=== PATIENT | male | born 1995 | race Two or more races ===

== ENCOUNTER 2024-10-18 13:20 | Inpatient (IN) | payer MEDICAID, SELFPAY ==
[2024-10-18 13:22] VITALS: BMI 32.5
[2024-10-18 13:40] VITALS: BP 159/99; PULSE 63; RESP 18; TEMP 36.6; O2SAT 97
--- NOTE | 2024-10-18 13:48 | PD.EDMALE ---
ED Male Genitalurinary RME/HPI General Chief complaint: Urogenital-Male Stated complaint: BLOOD AND PROTIEN IN URINE Time Seen by Provider: 10/18/24 13:33 Source: patient Arrival date/time: 10/18/24 13:20 29-year-old male with no known medical history was sent to the emergency room by primary care provider for blood and protein in the urine. Mode of arrival: ambulatory Limitations: no limitations Related Data Previous Rx's ?Medication ?Instructions ?Recorded ibuprofen 800 mg tablet 800 mg PO TID PRN pain #30 tabs 03/25/23 loperamide 2 mg capsule (Imodium 2 mg PO Q6H PRN loose stool #14 03/25/23 A-D) caps ondansetron 4 mg disintegrating 4 mg PO Q6H PRN nausea and 03/25/23 tablet vomiting #14 tabs Allergies Allergy/AdvReac Type Severity Reaction Status Date / Time No Known Allergies Allergy Verified 10/18/24 13:21 ED Exam General Limitations: Present no limitations Course Orders Category Date Time Status CBC Stat Lab 10/18/24 13:48 Ordered CK [Creatine Kinase] Stat Lab 10/18/24 13:48 Ordered CMP [Comprehensive Metabolic Panel] Stat Lab 10/18/24 13:48 Ordered UA, C/S IF [Urinalysis, C/S if Indicated] Stat Lab 10/18/24 13:48 Ordered Vital Signs Vital signs: Vital Signs Temperature 97.9 F 10/18/24 13:40 Pulse Rate 63 10/18/24 13:40 Respiratory Rate 18 10/18/24 13:40 Blood Pressure 159/99 H 10/18/24 13:40 Pulse Oximetry (%) 97 10/18/24 13:40 Oxygen Delivery Method Room Air 10/18/24 13:40 Discharge Plan Prescriptions/Referrals Prescriptions/Med Rec: No Action loperamide [Imodium A-D] 2 mg capsule 2 mg PO Q6H PRN (Reason: loose stool) Qty: 14 0RF ibuprofen 800 mg tablet 800 mg PO TID PRN (Reason: pain) Qty: 30 0RF ondansetron 4 mg tablet,disintegrating 4 mg PO Q6H PRN (Reason: nausea and vomiting) Qty: 14 0RF Patient/Caregiver Discharge Instructions Print Language: German
[2024-10-18 14:02] LABS: Collection Type, Urine Clean Catch; Squamous Epithelial Cell,Urine 0 /hpf (0-5)
[2024-10-18 14:14] LABS: Bacteria,Urine Rare; Bilirubin,Urine Negative (Negative); Blood,Urine 3+ (Negative); Clarity,Urine Clear (Clear/Hazy); Culture Indicated,Urine Not Indicated; Glucose, Urine Negative (Negative); Ketones,Urine Negative (Negative); Leukocyte Esterase,Urine Negative (Negative); Nitrite,Urine Negative (Negative); PH,Urine 6.5 (5.0-7.0); Protein,Urine 2+ (Neg - Trace); RBC,Urine 5 /hpf (0-3); Specific Gravity,Urine 1.028 (1.001-1.035); Urobilinogen,Urine Negative mg/dL (0.0-1.0); WBC,Urine 5 /hpf (0-5)
[2024-10-18 14:32] LABS: Color,Urine Yellow (Lt Yel-Yel)
[2024-10-18 14:35] LABS: Basophils # (Auto) 0.0 Thou/mm3 (0.0-0.2); Basophils % (Auto) 0 % (0-2.5); Eosinophils # (Auto) 0.0 Thou/mm3 (0.0-0.5); Eosinophils % (Auto) 0 % (0-10); Hematocrit 45.8 % (41.0-53.0); Hemoglobin 15.4 g/dL (13.5-16.0); Immature Granulocytes Auto 0.01 Thou/mm3 (0.00-0.00); Lymphocytes # (Auto) 2.2 Thou/mm3 (1.0-4.8); Lymphocytes % (Auto) 24 % (10-50); Mean Corpuscular HGB Conc 33.6 g/dl (31.0-37.0); Mean Corpuscular Hemoglobin 28.3 pg (25.0-35.0); Mean Corpuscular Volume 84 fL (80-100); Monocytes # (Auto) 0.6 Thou/mm3 (0.0-0.8); Monocytes % (Auto) 7 % (0-12); Neutrophils # (Auto) 6.3 Thou/mm3 (1.8-7.7); Neutrophils % (Auto) 69 % (37-80); Nucleated Red Blood Cell # 0.00 Thou/mm3 (0.00-0.00); Nucleated Red Blood Cell % 0 /100 WBC (0); Platelet Count 320 Thou/mm3 (140-440); RDW Standard Deviation 39.5 fL (35.1-43.9); Red Blood Count 5.44 Miln/mm3 (4.50-5.90); White Blood Count 9.2 Thou/mm3 (3.8-10.6)
[2024-10-18 14:51] LABS: Alanine Aminotransferase 194 U/L (10-49); Albumin, Serum 4.4 gm/dL (3.5-5.0); Albumin/Globulin Ratio 1.9 (1.2-2.2); Alkaline Phosphatase 86 U/L (46-116); Anion Gap 9 (7-16); Aspartate Amino Transferase 704 U/L (0-34); BUN/Creatinine Ratio 7 Ratio (12-20); Bilirubin,Total 0.6 mg/dL (0.3-1.2); Blood Urea Nitrogen 6 mg/dL (9-23); Calcium 9.3 mg/dL (8.3-10.6); Calcium (Corrected) 9.3 mg/dL (8.5-10.1); Carbon Dioxide 26.7 mMol/L (20.0-31.0); Chloride 106 mMol/L (98-107); Creatinine (Component) 0.9 mg/dL (0.6-1.3); Estimated Creatinine Clearance 119.9 mL/min (>60); Globulin 2.3 gm/dL (2.3-3.5); Glucose 99 mg/dL (74-106); Osmolality,Calculated 280 (275-295); Potassium 5.1 mMol/L (3.4-5.1); Sodium 142 mMol/L (136-145); Total Protein 6.7 gm/dL (5.7-8.2); eGFR > 60 See Note
--- NOTE | 2024-10-18 15:00 | PD.EDRME ---
Rapid Medical Screening Exam RME Arrival date/time: 10/18/24 13:20 29-year-old male with no known medical history was sent to the emergency room by primary care provider for blood and protein in the urine. I have greeted and performed a focused initial assessment of this patient. A comprehensive ED assessment and evaluation of the patient, analysis of all test results, and completion of the medical decision making process will be conducted by additional ED providers. Chief Complaint: Urogenital-Male Time Seen by Provider: 10/18/24 13:33 Vital signs: Vital Signs Temperature 97.9 F 10/18/24 13:40 Pulse Rate 63 10/18/24 13:40 Respiratory Rate 18 10/18/24 13:40 Blood Pressure 159/99 H 10/18/24 13:40 Pulse Oximetry (%) 97 10/18/24 13:40 Oxygen Delivery Method Room Air 10/18/24 13:40 Vital signs reviewed by provider: Yes
[2024-10-18 15:05] LABS: Creatine Kinase > 39000 U/L (34-171)
--- NOTE | 2024-10-18 15:28 | XR_ITS ---
Examination: Retroperitoneal ultrasound, complete Technique: Multiple high resolution grayscale images of the retroperitoneum obtained, including kidneys and bladder. Exam date and time:October 18, 2024, 1532 hours INDICATIONS: Blood and protein in urine on laboratory examination today with urinary stream discoloration FINDINGS: Right kidney 10.5 cm cortex 1.4 cm Left kidney 9.8 cm cortex 1.9 cm No hydronephrosis or renal calculi Mild renal scar formation No bladder mass or bladder calculi Bladder prevoid volume 106 cc postvoid volume 0 cc Prostate 3.7 x 3.2 x 3.4 cm volume 21.0 cc no prostate nodules IMPRESSION: Mild bilateral renal parenchymal scar formation No hydronephrosis or renal calculi
--- NOTE | 2024-10-18 15:35 | XR_ITS ---
Examination: Abdomen sonogram, Limited Date and time of exam: October 18, 2024, 1543 hours INDICATIONS: Elevated liver function tests on laboratory examination today. Technique: Real-time hunt scale transabdominal sonographic images of the upper abdomen obtained. Findings: Normal gallbladder. Normal common bile duct 0.2 cm Pancreatic head 2.1 cm Liver 14.7 cm fatty infiltration no focal liver lesions Normal hepatopedal portal venous flow Patent IVC IMPRESSION: Normal gallbladder Normal common bile duct
--- NOTE | 2024-10-18 15:43 | PD.EDMALE ---
ED Male Genitalurinary RME/HPI General Chief complaint: Urogenital-Male Stated complaint: BLOOD AND PROTIEN IN URINE Time Seen by Provider: 10/18/24 13:33 Arrival date/time: 10/18/24 13:20 RME / HPI RME / HPI Narrative: 29-year-old male with no known medical history was sent to the emergency room by primary care provider for blood and protein in the urine. Apparently patient was having a heavy workout last Monday, and this morning woke up with soreness to the muscle all over and went to PCP because the urine was noted to be dark-colored. Patient was sent to us for further evaluation.. Denies any other complaints. Related Data Previous Rx's ?Medication ?Instructions ?Recorded ibuprofen 800 mg tablet 800 mg PO TID PRN pain #30 tabs 03/25/23 loperamide 2 mg capsule (Imodium 2 mg PO Q6H PRN loose stool #14 03/25/23 A-D) caps ondansetron 4 mg disintegrating 4 mg PO Q6H PRN nausea and 03/25/23 tablet vomiting #14 tabs Allergies Allergy/AdvReac Type Severity Reaction Status Date / Time No Known Allergies Allergy Verified 10/18/24 13:21 Review of Systems Review of Systems Narrative Review of Systems: Review of system reviewed and within normal limits except mentioned in HPI ED Exam Narrative Physical exam: VITAL SIGNS: Reviewed. GENERAL APPEARANCE: Alert and interactive, follows commands, no acute distress, HEAD AND FACE: Non-traumatic. ENT: PERRL, pink conjunctivitis, eyelid no trauma, Mucous membrane moist. NECK: Supple, nontender, no nuchal rigidity. CHEST: No tenderness, no crepitus, no paradoxical movement, no retractions. LUNGS: Clear, well ventilated, symmetric, no rales, no wheezing, no ronchi, no stridor, good breath sounds bilaterally. HEART: Regular rate, regular rhythm, no murmur, no gallops. ABDOMEN: Soft, positive bowel sounds, nondistended, no guarding, nontender, no rebound, no masses, RECTAL: Deferred. GENITAL: Deferred. NEUROLOGICAL: Gross motor function intact sensory function intact, Appropriate for age. MUSCULOSKELETAL: low back nontender, full range of motion. EXTREMITIES: Nontender, full range of motion. SKIN: Color pink, dry, no rash, no lacerations, no abrasions, no contusions. LYMPHATICS: Deferred. Course Quality Measures none Orders Category Date Time Status COVID-19 Screening Questionnaire NOW Care 10/18/24 15:56 Active Decision to Admit X1 Care 10/18/24 15:56 Active US gall bladder Stat Exams 10/18/24 15:35 Completed US renal BI Stat Exams 10/18/24 15:28 Completed Alcohol, Blood Medical Stat Lab 10/18/24 14:12 Completed CBC Stat Lab 10/18/24 14:12 Completed CK [Creatine Kinase] Stat Lab 10/18/24 14:12 Completed CMP [Comprehensive Metabolic Panel] Stat Lab 10/18/24 14:12 Completed Drug Screen,Urine Stat Lab 10/18/24 13:50 Received Lactic Acid [Lactate (Lactic Acid)] Stat Lab 10/18/24 16:28 Completed Mag [Magnesium] Stat Lab 10/18/24 16:28 Received Phosphorous Stat Lab 10/18/24 16:28 Received UA, C/S IF [Urinalysis, C/S if Indicated] Stat Lab 10/18/24 13:50 Completed Uric Acid Stat Lab 10/18/24 14:12 Completed VBG [Venous Blood Gas] Stat Lab 10/18/24 16:28 Completed Dextrose 5%-Water [D5w] 500 ml Med 10/18/24 16:00 Active Sodium Bicarb 8.4% 50ml Vial* 88.23 meq IV 100 mls/hr Dextrose 5%-Water [D5w] 500 ml Med 10/19/24 09:39 Discontinued Sodium Bicarb 8.4% 50ml Vial* 88.23 meq IV 100 mls/hr Ringers Lactated 1000 ml [Lactated Ringers] 1,000 ml Med 10/18/24 15:52 Discontinued IV 999 mls/hr Ringers Lactated 1000 ml [Lactated Ringers] 1,000 ml Med 10/18/24 15:52 Discontinued IV 999 mls/hr Sodium Chloride 0.9% 1000 ml [Ns] 1,000 ml Med 10/18/24 15:45 Discontinued IV 999 mls/hr Sodium Chloride 0.9% 1000 ml [Ns] 1,000 ml Med 10/18/24 15:45 Discontinued IV 999 mls/hr Vital Signs Vital signs: Vital Signs Temperature 97.9 F 10/18/24 13:40 Pulse Rate 63 10/18/24 13:40 Respiratory Rate 18 10/18/24 13:40 Blood Pressure 159/99 H 10/18/24 13:40 Pulse Oximetry (%) 97 10/18/24 13:40 Oxygen Delivery Method Room Air 10/18/24 13:40 Urogenital - Male [facility] Narrative MDM Narrative:: 29-year-old male with no known medical history was sent to the emergency room by primary care provider for blood and protein in the urine. Apparently patient was having a heavy workout last Monday, and this morning woke up with soreness to the muscle all over and went to PCP because the urine was noted to be dark-colored. Patient was sent to us for further evaluation.. Denies any other complaints. Patient's serum creatinine kinase was noted to be more than 39,000. The rest of the labs unremarkable except for AST of 704 ALT of 194. Creatinine is normal. Ultrasound of the renal came back unremarkable except ultrasound of the gallbladder also came back normal. Discussed result with the family and patient. Patient was started on 2 L IV LR and started on bicarbonate drip. Patient data External records reviewed:: None Clinical information provided by:: patient and family Social determinants that could affect healthcare access:: none Patient has the following chronic illnesses:: None How is presenting disease/condition affected by chronic disease/condition?: no chronic disease Evaluation data The following diagnostics were reviewed and interpreted by me:: lab results, radiology exam(s) and EKG tracing(s) Lab and/or radiology exams considered but not ordered:: None Interpretation Summary: See results [facility] Medications / Prescriptions Medications or Prescriptions considered but not ordered:: None Medication administrations:: Medication Administration History Sodium Bicarbonate 88.23 meq/ (Dextrose) 588.23 mls @ 100 mls/hr IV .Q5H53M [facility] Stop: 10/19/24 03:45 Last Admin: 10/18/24 16:38 Dose: 100 mls/hr Documented By: KAUSHIK Lactated Ringer's (Lactated Ringers) 1,000 mls @ 150 mls/hr IV .Q6H40M [facility] Stop: 11/17/24 16:14 Ibuprofen (Ibuprofen Tab 600 Mg Tablet) 600 mg PO Q6H PRN PRN Reason: Pain 1-3 and/or Fever >100.1 Stop: 11/17/24 16:10 Ondansetron HCl (Ondansetron Inj 2 Mg/Ml Inj 2 Ml) 4 mg IVP Q6H PRN; Protocol PRN Reason: NAUSEA OR VOMITING Stop: 11/17/24 16:10 Discontinued Medications Sodium Chloride (Ns) 1,000 mls @ 999 mls/hr IV .Q1H1M [facility] Stop: 10/18/24 16:45 Sodium Chloride (Ns) 1,000 mls @ 999 mls/hr IV .Q1H1M [facility] Stop: 10/18/24 16:45 Lactated Ringer's (Lactated Ringers) 1,000 mls @ 999 mls/hr IV .Q1H1M [facility] Stop: 10/18/24 16:52 Last Admin: 10/18/24 16:38 Dose: 999 mls/hr Documented By: KAUHSIK Lactated Ringer's (Lactated Ringers) 1,000 mls @ 999 mls/hr IV .Q1H1M [facility] Stop: 10/18/24 16:52 Last Admin: 10/18/24 16:39 Dose: 999 mls/hr Documented By: KAUSHIK Sodium Bicarbonate 88.23 meq/ (Dextrose) 588.23 mls @ 100 mls/hr IV .Q5H53M [facility] Stop: 11/18/24 09:38 Sodium Bicarbonate (Sodium Bicarb 8.4% 50ml Vial*) Confirm Administered Dose 100 mls @ ud .ROUTE .STK-MED ONE Stop: 10/18/24 16:34 IV fluids, and sodium bicarbonate drip Consultations Consultation(s) initiated? (list below): No Diagnosis Urogenital Male Differential Diagnosis: other (Rhabdomyolysis, nephrotic syndrome, UTI) Most likely diagnosis given after review of the tests above:: Rhabdomyolysis Admission Indicated Admission indicated?: indicated Admission Request Was there a request for admission?: Yes Admission Attestation Admission request attestation: Discussed case with [] from Hospitalist service regarding admission. Discussed patients ED course, exam findings, labs, and radiology results. The Hospitalist [agrees,declines] to accept the patient for admission. Disposition Plan Disposition Plan: Admit Discharge Plan Problem List Clinical Impression: Rhabdomyolysis
[2024-10-18 16:04] VITALS: BP 164/95; PULSE 78; RESP 18; TEMP 36.8; O2SAT 98
[2024-10-18 16:10] LABS: Uric Acid 5.4 mg/dL (3.7-9.2)
--- NOTE | 2024-10-18 16:17 | PD.RESHP ---
Documentation for date of: 10/18/24 HPI History of Present Illness Chief complaint: Muscle soreness History of present illness: 29-year-old male with past medical history of marijuana use presenting to the ED on 10/18 with episode of muscle soreness. Patient states that yesterday he was doing a new core workout at which point he felt muscle soreness but no other concerning symptoms. Patient denies having any accidents or trauma and states that he just went harder than usual. Patient denies having any associated fever/chills, abdominal pain but noticed that his urine became dark-colored shortly after his workout. When the urine did not clear up he decided to present himself to the emergency room. Patient denies taking any supplements or exogenous testosterone, PED's. Patient denies having any concerning cardiac symptoms such as chest pain, shortness of breath, nausea/vomiting or diarrhea. Medical history: As stated above Surgical history: Denies Allergies: NKDA Home medications: Denies any prescription medication, supplement use or energy drinks/preworkout Family history: Noncontributory Social history: Patient lives in [place], works as a network security analyst, patient's 's family is in [facility] more, patient smokes marijuana every other day denies heavy alcohol use or any other illicit drugs and denies tobacco use. ROS: All 12 systems assessed and the patient denies unless otherwise stated in HPI In the ED, patient presented mildly hypertensive 159/99, regular heart rate, respiratory rate and afebrile satting 97 on room air. Pertinent lab findings included potassium 5.1, BUN 6, creatinine 0.9, eGFR greater than 60, lactic acid 1.0, AST 704, ALT 194, T. bili 0.6, total creatinine kinase greater than 39,000. Urinalysis shows proteinuria, hematuria 3+ with 5 RBC. Renal ultrasound shows bilateral renal parenchymal scar formation but no hydronephrosis and gallbladder ultrasounds was negative. Patiently will be admitted for the management of rhabdomyolysis we treated with IV fluids and close monitoring. Exam Vital Signs Temp Pulse Resp BP Pulse Ox O2 Del Method 98.3 F 78 18 164/95 H 98 Room Air 10/18/24 16:04 10/18/24 16:04 10/18/24 16:04 10/18/24 16:04 10/18/24 16:10/18/24 16:04 Narrative Exam Physical Exam: GENERAL: Awake, answering questions appropriately, appears stated age HEENT: NC/AT. Moist mucosa. PERRLA/EOMI. CARDIO: Heart RRR, no obvious murmurs, no JVD. PULM: No coughing or visible SOB. Lungs CTA B/L. GI: Abdomen soft, NT/ND, +BS. SKIN/MSK/EXT: No wounds/discoloration/rashes/edema/amputations noted. +Pedal pulses present B/L. NEURO: Oriented x3, Moves extremities x4, no focal neurologic deficits noted Results: Labs 10/19/24 04:30 10/19/24 04:30 Labs: Short CBC 10/18/24 Range/Units 14:12 WBC 9.2 (3.8-10.6) Thou/mm3 Hgb 15.4 (13.5-16.0) g/dL Hct 45.8 (41.0-53.0) % Plt Count 320 (140-440) Thou/mm3 BMP 10/18/24 14:12 Sodium 142 Potassium 5.1 Chloride 106 Carbon Dioxide 26.7 BUN 6 L Creatinine 0.9 Glucose 99 Calcium 9.3 Cardiac Enzymes 10/18/24 Range/Units 14:12 Total Creatine Kinase > 65422 H (34-171) U/L Liver Function 10/18/24 Range/Units 14:12 Total Bilirubin 0.6 (0.3-1.2) mg/dL AST 704 H* (0-34) U/L ALT 194 H (10-49) U/L Alkaline Phosphatase 86 (46-116) U/L Albumin 4.4 (3.5-5.0) gm/dL Urine 10/18/24 Range/Units 13:50 Urine Color Yellow (Lt Yel-Yel) Urine Clarity Clear (Clear/Hazy) Urine pH 6.5 (5.0-7.0) Ur Specific [place] 1.028 (1.001-1.035) Urine Protein 2+ A (Neg - Trace) Urine Glucose (UA) Negative (Negative) Quality Measures Quality Measures VTE prophylaxis Medications Home Medications and Allergies Home Medications ?Medication ?Instructions ?Recorded ?Confirmed ?Type No Known Home Medications 10/18/24 10/18/24 History Allergies Allergy/AdvReac Type Severity Reaction Status Date / Time No Known Allergies Allergy Verified 10/18/24 13:21 Visit Medications Lactated Ringer's (Lactated Ringers) 1,000 mls @ 999 mls/hr IV .Q1H1M ONE Stop: 10/18/24 16:52 Lactated Ringer's (Lactated Ringers) 1,000 mls @ 999 mls/hr IV .Q1H1M [facility] Stop: 10/18/24 16:52 Sodium Bicarbonate 88.23 meq/ (Dextrose) 588.23 mls @ 100 mls/hr IV .Q5H53M [facility] Stop: 11/18/24 09:38 Sodium Bicarbonate 88.23 meq/ (Dextrose) 588.23 mls @ 100 mls/hr IV .Q5H53M [facility] Stop: 10/19/24 09:38 Lactated Ringer's (Lactated Ringers) 1,000 mls @ 150 mls/hr IV .Q6H40M [facility] Stop: 11/17/24 16:14 Ibuprofen (Ibuprofen Tab 600 Mg Tablet) 600 mg PO Q6H PRN PRN Reason: Pain 1-3 and/or Fever >100.1 Stop: 11/17/24 16:10 Ondansetron HCl (Ondansetron Inj 2 Mg/Ml Inj 2 Ml) 4 mg IVP Q6H PRN; Protocol PRN Reason: NAUSEA OR VOMITING Stop: 11/17/24 16:10 Discontinued Medications Sodium Chloride (Ns) 1,000 mls @ 999 mls/hr IV .Q1H1M ONE Stop: 10/18/24 16:45 Sodium Chloride (Ns) 1,000 mls @ 999 mls/hr IV .Q1H1M ONE Stop: 10/18/24 16:45 Assessment & Plan Plan 29-year-old male with past medical history of marijuana use presenting to the ED on 10/18 with episode of muscle soreness will be admitted for the management of rhabdomyolysis we treated with IV fluids and close monitoring. #Rhabdomyolysis #Hematuria As noted above in HPI, patient had excessive workout which caused rhabdomyolysis, denies any trauma or crush injury or illicit drug use In the ED, patient found to have a CK greater than 39,000 with hematuria and proteinuria noted on UA On examination, no pertinent findings Ultrasound of kidneys shows bilateral cortical thinning without any hydronephrosis In the ED, patient given 2 L of LR along with sodium bicarb drip Plan: Will continue IV bicarb drip for 1 bag then discontinue Will continue IV LR 150 cc an hour continuously Monitor with morning labs #Elevated liver enzymes During assessment, patient has elevated LFTs without elevation in T. 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 #Hypertensive On presentation, patient is hypertensive systolic in the 150s and diastolic in the 90s Likely secondary to acutely ill status and rhabdomyolysis Patient does not take any antihypertensives at home Plan: Will continue monitoring blood pressure #Marijuana use disorder Patient smokes marijuana every other day Plan: Counseled on consideration to lessen the use Health Maintenance: Lines: PIV Diet: Regular Bowel: Not needed GI prophylaxis: Not needed DVT prophylaxis: Not needed patient ambulating without any issues Dispo: IV fluid resuscitation for rhabdomyolysis Code: Full Patient seen and assessed with attending Dr. Ron Cummins DO PGY-2 Internal Medicine - [facility] Attending Provider Attestation/Addendum I attest that I was physically present for the evaluation, physical examination, lab and imaging review of the patient with the residents. I discussed the case with the residents and agree with the findings and plans of care as documented above. After examination of the patient and review of the clinical data I feel that this patient needs admission to the hospital for further treatment/evaluation. Arpita Velasquez MD
[2024-10-18 16:21] VITALS: BP 157/103; PULSE 66; RESP 17; TEMP 36.9; O2SAT 99
[2024-10-18 16:27] LABS: Alcohol, Blood Medical < 3.0 mg/dL (0-10.0)
[2024-10-18 16:32] LABS: Base Excess, Venous 2 (-3-3); Lactate (Lactic Acid) 1.0 mMol/L (0.4-2.0); O2 Saturation, Venous 41 % (96-97); PCO2, Venous 48 mmHg (36-56); PO2, Venous 23 mmHg (15-58); pH, Venous 7.38 (7.33-7.66)
[2024-10-18] MEDS: RINGERS LACTATED 1000 ML 1,000 ML 999 ML IV ×2 (16:38→16:39)
[2024-10-18] MEDS: Sodium Bicarb 8.4% 50ml Vial* 88.23 MEQ in DEXTROSE 5%-WATER 500 ML 100 MEQ IV (16:38)
[2024-10-18 16:58] LABS: Magnesium 1.9 mg/dL (1.6-2.6); Phosphorous 3.6 mg/dL (2.4-5.1)
[2024-10-18 17:08] LABS: Amphetamine/Methamp Scrn,U Negative (Negative); Barbiturate Screen,Urine Negative (Negative); Benzodiazepines Screen,Urine Negative (Negative); Benzoylecgonine Screen, Ur Negative (Negative); Fentanyl Screen,Urine Negative (Negative); Opiate Screen,Urine Negative (Negative); THC Screen,Urine Positive (Negative)
[2024-10-18 17:43] LABS: Hepatitis A Antibody IgM Non Reactive (Non React); Hepatitis B Core Antibody IgM Non Reactive (Non React); Hepatitis B Surface Antigen Non Reactive (Non React); Hepatitis C Antibody Non Reactive (Non React)
[2024-10-18 18:04] VITALS: BP 147/103; PULSE 68; RESP 18; TEMP 36.6; O2SAT 99
[2024-10-18 20:00] VITALS: BP 147/95; PULSE 81; RESP 15; O2SAT 99
[2024-10-18 20:06] LABS: Base Excess, Venous 7 (-3-3); O2 Saturation, Venous 56 % (96-97); PCO2, Venous 46 mmHg (36-56); PO2, Venous 26 mmHg (15-58); pH, Venous 7.46 (7.33-7.66)
[2024-10-18 20:22] LABS: Alanine Aminotransferase 216 U/L (10-49); Albumin, Serum 4.4 gm/dL (3.5-5.0); Albumin/Globulin Ratio 2.2 (1.2-2.2); Alkaline Phosphatase 83 U/L (46-116); Anion Gap 6 (7-16); Aspartate Amino Transferase 776 U/L (0-34); BUN/Creatinine Ratio 7 Ratio (12-20); Bilirubin,Total 0.6 mg/dL (0.3-1.2); Blood Urea Nitrogen 6 mg/dL (9-23); Calcium 9.5 mg/dL (8.3-10.6); Calcium (Corrected) 9.5 mg/dL (8.5-10.1); Carbon Dioxide 32.5 mMol/L (20.0-31.0); Chloride 105 mMol/L (98-107); Creatinine (Component) 0.9 mg/dL (0.6-1.3); Estimated Creatinine Clearance 119.9 mL/min (>60); Globulin 2.0 gm/dL (2.3-3.5); Glucose 126 mg/dL (74-106); Osmolality,Calculated 284 (275-295); Potassium 4.8 mMol/L (3.4-5.1); Sodium 143 mMol/L (136-145); Total Protein 6.4 gm/dL (5.7-8.2); eGFR > 60 See Note
[2024-10-18 20:25] VITALS: BMI 32.9
[2024-10-18] MEDS: RINGERS LACTATED 1000 ML 1,000 ML 150 ML IV (20:27)
[2024-10-18 21:09] VITALS: BP 154/98; PULSE 74; RESP 18; TEMP 36.6; O2SAT 99
[2024-10-19] VITALS (7 sets, daily range): BP systolic 138–151; BP diastolic 85–96; PULSE 60–80; RESP 17–19; TEMP 36.3–36.6; O2SAT 96–99
[2024-10-19] MEDS: RINGERS LACTATED 1000 ML 1,000 ML 150 ML IV (03:13)
[2024-10-19 05:04] LABS: Basophils # (Auto) 0.1 Thou/mm3 (0.0-0.2); Basophils % (Auto) 1 % (0-2.5); Eosinophils # (Auto) 0.1 Thou/mm3 (0.0-0.5); Eosinophils % (Auto) 1 % (0-10); Hematocrit 43.9 % (41.0-53.0); Hemoglobin 14.7 g/dL (13.5-16.0); Immature Granulocytes Auto 0.01 Thou/mm3 (0.00-0.00); Lymphocytes # (Auto) 3.2 Thou/mm3 (1.0-4.8); Lymphocytes % (Auto) 32 % (10-50); Mean Corpuscular HGB Conc 33.5 g/dl (31.0-37.0); Mean Corpuscular Hemoglobin 28.1 pg (25.0-35.0); Mean Corpuscular Volume 84 fL (80-100); Monocytes # (Auto) 0.6 Thou/mm3 (0.0-0.8); Monocytes % (Auto) 6 % (0-12); Neutrophils # (Auto) 5.9 Thou/mm3 (1.8-7.7); Neutrophils % (Auto) 59 % (37-80); Nucleated Red Blood Cell # 0.00 Thou/mm3 (0.00-0.00); Nucleated Red Blood Cell % 0 /100 WBC (0); Platelet Count 318 Thou/mm3 (140-440); RDW Standard Deviation 39.3 fL (35.1-43.9); Red Blood Count 5.23 Miln/mm3 (4.50-5.90); White Blood Count 9.9 Thou/mm3 (3.8-10.6)
[2024-10-19 05:32] LABS: Alanine Aminotransferase 218 U/L (10-49); Albumin, Serum 3.8 gm/dL (3.5-5.0); Albumin/Globulin Ratio 1.8 (1.2-2.2); Alkaline Phosphatase 77 U/L (46-116); Anion Gap 9 (7-16); Aspartate Amino Transferase 729 U/L (0-34); BUN/Creatinine Ratio 6 Ratio (12-20); Bilirubin,Total 0.7 mg/dL (0.3-1.2); Blood Urea Nitrogen < 5 mg/dL (9-23); Calcium 8.9 mg/dL (8.3-10.6); Calcium (Corrected) 9.1 mg/dL (8.5-10.1); Carbon Dioxide 29.3 mMol/L (20.0-31.0); Chloride 106 mMol/L (98-107); Creatinine (Component) 0.8 mg/dL (0.6-1.3); Estimated Creatinine Clearance 135.6 mL/min (>60); Globulin 2.1 gm/dL (2.3-3.5); Glucose 101 mg/dL (74-106); Osmolality,Calculated 284 (275-295); Potassium 3.8 mMol/L (3.4-5.1); Sodium 144 mMol/L (136-145); Total Protein 5.9 gm/dL (5.7-8.2); eGFR > 60 See Note
[2024-10-19] MEDS: RINGERS LACTATED 1000 ML 1,000 ML 200 ML IV (08:36)
[2024-10-19 09:28] LABS: Creatine Kinase > 39000 U/L (34-171)
--- NOTE | 2024-10-19 11:05 | PC.SS ---
29YO Male, reason for visit: Rhabdomyolysis. ?? SS met with patient at bedside, role, and purpose of today?s contact was explained. Verbal consent was provided by patient to allow his spouse, Ann Robles to provide information. Ann confirmed patient?s demographic information. Patient?s primary medical surrogate decisionmaker is his spouse, Ann Roblse, . Patient is independent with ADL completion and ambulation. [facility]: [facility] PCP: TAHIRA, last appt. was 10/17/24. Discharge plan discussed with patient, he is requesting to return home at the time of discharge. ? Next of kin: Spouse, Ann Robles [phone] Discharge plan: Home, family to transport.
[2024-10-19] MEDS: RINGERS LACTATED 1000 ML 1,000 ML 300 ML IV ×4 (11:31→21:35)
--- NOTE | 2024-10-19 15:48 | ESPR_ITS ---
Documentation for date of: 10/19/24 Subjective Subjective Interval history: Patient is seen and examined at bedside in the ICU. No acute overnight events. Reported that his urine is clear and does not have any other complaints. Labs done this morning still showed creatinine kinase greater than 39,000 and AST 729, ALT 218. Increased IV fluids to 300 mL/h. Will continue to monitor creatinine kinase and recommended to increase her fluid intake. Exam Vital Signs Temp Pulse Resp BP Pulse Ox O2 Del Method 97.4 F 70 18 151/87 H 99 Room Air 10/19/24 12:00 10/19/24 12:00 10/19/24 12:00 10/19/24 12:00 10/19/24 12:00 10/19/24 12:00 Narrative Exam General: Awake. HEENT: Normocephalic, atraumatic, mucous membranes moist. Heart: Regular rate and rhythm, no murmurs. Lungs: Clear to auscultation with no wheezing or crackles. Abdomen: Soft, nondistended, nontender, positive bowel sounds. ?No guarding or rebound tenderness. Neurologic: Alert and oriented x3, no gross neurological deficit, and patient able to move all 4 extremities. Extremities: No edema. Skin: No rash or ecchymoses. Objective Labs 10/19/24 04:30 10/19/24 04:30 Labs: Laboratory Results - last 24 hr 10/18/24 10/18/24 10/18/24 13:50 14:12 14:17 WBC RBC Hgb Hct MCV MCH MCHC RDW Std Deviation Plt Count Neut % (Auto) Lymph % (Auto) [place] % (Auto) Eos % (Auto) Baso % (Auto) Neut # (Auto) Lymph # (Auto) [place] # (Auto) Eos # (Auto) Baso # (Auto) Immature Gran # (Auto) Absolute Nucleated RBC Immature Gran % Nucleated RBC % VBG pH VBG pCO2 VBG pO2 VBG O2 Sat (Siobhan) VBG Base Excess Sodium Potassium Chloride Carbon Dioxide Anion Gap BUN Creatinine Estim Creat Clear Calc eGFR BUN/Creatinine Ratio Glucose Calculated Osmolality Lactic Acid Uric Acid 5.4 Calcium Corrected Calcium Phosphorus Magnesium Total Bilirubin AST ALT Alkaline Phosphatase Total Creatine Kinase Total Protein Albumin Globulin Albumin/Globulin Ratio Urine Opiates Screen Negative Urine Fentanyl Screen Negative Ur Barbiturates Screen Negative U Amphetamin/Meth Scrn Negative U Benzodiazepines Scrn Negative U Cocaine Metab Screen Negative U Marijuana (THC) Screen Positive A Ethyl Alcohol < 3.0 Hepatitis A IgM Ab Non Reactive Hep Bs Antigen Non Reactive Hep B Core IgM Ab Non Reactive Hepatitis C Antibody Non Reactive 10/18/24 10/18/24 10/19/24 16:28 19:59 04:30 WBC 9.9 RBC 5.23 Hgb 14.7 Hct 43.9 MCV 84 MCH 28.1 MCHC 33.5 RDW Std Deviation 39.3 Plt Count 318 Neut % (Auto) 59 Lymph % (Auto) 32 [place] % (Auto) 6 Eos % (Auto) 1 Baso % (Auto) 1 Neut # (Auto) 5.9 Lymph # (Auto) 3.2 [place] # (Auto) 0.6 Eos # (Auto) 0.1 Baso # (Auto) 0.1 Immature Gran # (Auto) 0.01 H Absolute Nucleated RBC 0.00 Immature Gran % 0 Nucleated RBC % 0 VBG pH 7.38 7.46 VBG pCO2 48 46 VBG pO2 23 26 VBG O2 Sat (Siobhan) 41 L 56 L D VBG Base Excess 2 7 H Sodium 143 144 Potassium 4.8 3.8 D Chloride 105 106 Carbon Dioxide 32.5 H 29.3 Anion Gap 6 L 9 BUN 6 L < 5 L Creatinine 0.9 0.8 Estim Creat Clear Calc 119.9 135.6 eGFR > 60 > 60 BUN/Creatinine Ratio 7 L 6 L Glucose 126 H 101 Calculated Osmolality 284 284 Lactic Acid 1.0 Uric Acid Calcium 9.5 8.9 Corrected Calcium 9.5 9.1 Phosphorus 3.6 Magnesium 1.9 Total Bilirubin 0.6 0.7 AST 776 H* 729 H* ALT 216 H 218 H Alkaline Phosphatase 83 77 Total Creatine Kinase > 18284 H Total Protein 6.4 5.9 Albumin 4.4 3.8 D Globulin 2.0 L 2.1 L Albumin/Globulin Ratio 2.2 1.8 Urine Opiates Screen Urine Fentanyl Screen Ur Barbiturates Screen U Amphetamin/Meth Scrn U Benzodiazepines Scrn U Cocaine Metab Screen U Marijuana (THC) Screen Ethyl Alcohol Hepatitis A IgM Ab Hep Bs Antigen Hep B Core IgM Ab Hepatitis C Antibody ABG Interpretation ABG results: 10/18/24 10/18/24 16:28 19:59 VBG pH 7.38 7.46 VBG pCO2 48 46 VBG pO2 23 26 VBG Base Excess 2 7 H Quality Measures Quality Measures none Assessment & Plan Assessment Current Active Medications: Generic Name Dose Route Start Last Admin Trade Name Freq PRN Reason Stop Dose Admin Lactated Ringer's 1,000 mls @ 300 mls/hr 10/19/24 11:20 10/19/24 14:51 Lactated Ringers IV 11/18/24 11:19 300 mls/hr .Q3H20M BORIS Administration Ibuprofen 600 mg 10/18/24 16:11 Ibuprofen Tab 600 Mg Tablet PO 11/17/24 16:10 Q6H PRN Pain 1-3 and/or Fever >100.1 Ondansetron HCl 4 mg 10/18/24 16:11 Ondansetron Inj 2 Mg/Ml Inj 2 Ml IVP 11/17/24 16:10 Q6H PRN NAUSEA OR VOMITING Protocol Plan 29-year-old male with past medical history of marijuana use presenting to the ED on 10/18 with episode of muscle soreness will be admitted for the management of rhabdomyolysis we treated with IV fluids and close monitoring. #Rhabdomyolysis #Hematuria As noted above in HPI, patient had excessive workout which caused rhabdomyolysis, denies any trauma or crush injury or illicit drug use In the ED, patient found to have a CK greater than 39,000 with hematuria and proteinuria noted on UA On examination, no pertinent findings Ultrasound of kidneys shows bilateral cortical thinning without any hydronephrosis In the ED, patient given 2 L of LR along with sodium bicarb drip Plan: Will continue IV LR 300 cc an hour continuously Monitor with morning labs #Elevated liver enzymes, resolving During assessment, patient has elevated LFTs without elevation in T. bili On examination, patient denies having any significant abdominal tenderness Patient has not had a drink of alcohol for over a year and when he used to drink was a social drinker Likely secondary to rhabdomyolysis Plan: Follow-up on hepatitis panel - negative Monitor LFTs #Hypertension On presentation, patient is hypertensive systolic in the 150s and diastolic in the 90s Likely secondary to acutely ill status and rhabdomyolysis Patient does not take any antihypertensives at home Plan: Will continue monitoring blood pressure Started on losartan 25mg once daily, will increase as needed #Marijuana use disorder Patient smokes marijuana every other day Plan: Counseled on consideration to lessen the use Health Maintenance: Lines: PIV Diet: Regular Bowel: Not needed GI prophylaxis: Not needed DVT prophylaxis: Not needed patient ambulating without any issues Dispo: IV fluid resuscitation for rhabdomyolysis Code: Full Patient plan of care was discussed with the attending physician, Dr. Ron Jessica, PGY2 Attending Provider Attestation/Addendum I attest that I was physically present for the evaluation, physical examination, lab and imaging review of the patient with the residents. I discussed the case with the residents and agree with the findings and plans of care as documented above. At bedside today, patient appears comfortable and denies any new complaints. Denies muscle sores, nausea or vomiting. States that her urine is more clear compared to yesterday. Follow-up CK level is still more than 39,000, LFTs also remain high. We will increase the rate of IV hydration to 300 cc/h. Arpita Velasquez MD
[2024-10-19] MEDS: LOSARTAN POTASSIUM 25 MG TABLET PO (17:02)
[2024-10-19 17:16] LABS: Thyroid Stimulating Hormone 1.45 uIU/mL (0.55-4.78)
[2024-10-20] VITALS (8 sets, daily range): BP systolic 125–158; BP diastolic 68–96; PULSE 61–85; RESP 16–18; TEMP 36.2–36.7; O2SAT 96–98
[2024-10-20] MEDS: RINGERS LACTATED 1000 ML 1,000 ML 300 ML IV ×7 (01:50→23:49)
[2024-10-20] MEDS: IBUPROFEN TAB 600 MG TABLET PO (02:19)
[2024-10-20 05:10] LABS: Basophils # (Auto) 0.1 Thou/mm3 (0.0-0.2); Basophils % (Auto) 1 % (0-2.5); Eosinophils # (Auto) 0.2 Thou/mm3 (0.0-0.5); Eosinophils % (Auto) 2 % (0-10); Hematocrit 43.6 % (41.0-53.0); Hemoglobin 14.9 g/dL (13.5-16.0); Immature Granulocytes Auto 0.02 Thou/mm3 (0.00-0.00); Lymphocytes # (Auto) 3.8 Thou/mm3 (1.0-4.8); Lymphocytes % (Auto) 38 % (10-50); Mean Corpuscular HGB Conc 34.2 g/dl (31.0-37.0); Mean Corpuscular Hemoglobin 29.0 pg (25.0-35.0); Mean Corpuscular Volume 85 fL (80-100); Monocytes # (Auto) 0.7 Thou/mm3 (0.0-0.8); Monocytes % (Auto) 7 % (0-12); Neutrophils # (Auto) 5.3 Thou/mm3 (1.8-7.7); Neutrophils % (Auto) 53 % (37-80); Nucleated Red Blood Cell # 0.00 Thou/mm3 (0.00-0.00); Nucleated Red Blood Cell % 0 /100 WBC (0); Platelet Count 236 Thou/mm3 (140-440); RDW Standard Deviation 39.4 fL (35.1-43.9); Red Blood Count 5.14 Miln/mm3 (4.50-5.90); White Blood Count 10.1 Thou/mm3 (3.8-10.6)
[2024-10-20 05:39] LABS: Alanine Aminotransferase 265 U/L (10-49); Albumin, Serum 4.0 gm/dL (3.5-5.0); Albumin/Globulin Ratio 1.9 (1.2-2.2); Alkaline Phosphatase 78 U/L (46-116); Anion Gap 8 (7-16); Aspartate Amino Transferase 765 U/L (0-34); BUN/Creatinine Ratio 6 Ratio (12-20); Bilirubin,Total 0.6 mg/dL (0.3-1.2); Blood Urea Nitrogen < 5 mg/dL (9-23); Calcium 9.4 mg/dL (8.3-10.6); Calcium (Corrected) 9.4 mg/dL (8.5-10.1); Carbon Dioxide 28.3 mMol/L (20.0-31.0); Chloride 106 mMol/L (98-107); Creatinine (Component) 0.9 mg/dL (0.6-1.3); Estimated Creatinine Clearance 130.8 mL/min (>60); Globulin 2.1 gm/dL (2.3-3.5); Glucose 97 mg/dL (74-106); Osmolality,Calculated 280 (275-295); Potassium 4.1 mMol/L (3.4-5.1); Sodium 142 mMol/L (136-145); Total Protein 6.1 gm/dL (5.7-8.2); eGFR > 60 See Note
[2024-10-20] MEDS: LOSARTAN POTASSIUM 25 MG TABLET PO (08:25)
[2024-10-20 10:53] LABS: Sed Rate (ESR) 9 mm/hr (0-15)
[2024-10-20 11:22] LABS: C-Reactive Protein < 0.5 mg/dL (0.0-0.9); Troponin I < 0.020 ng/mL (0.0-0.045)
[2024-10-20 11:48] LABS: LDH (Lactate Dehydrogenase) 1710 U/L (120-246)
[2024-10-20 12:23] LABS: Creatine Kinase 63970 U/L (34-171)
--- NOTE | 2024-10-20 15:06 | PC.SS ---
Rounding note: Creatinine levels are elevated, staying several days. Discharging home when medically clear.
--- NOTE | 2024-10-20 17:31 | ESPR_ITS ---
Documentation for date of: 10/20/24 Subjective Subjective Interval history: No acute overnight events. Patient denies any further complaints. Vitals are stable. Still noted to have elevated CK levels greater than 39,000 but patient denies any complaints. Contacted our lab to give a numeric value of the CK, will follow-up with results. For now we will continue IV fluids Exam Vital Signs Temp Pulse Resp BP Pulse Ox O2 Del Method 98.0 F 85 16 151/91 H 97 Room Air 10/20/24 12:00 10/20/24 12:10/20/24 12:10/20/24 12:10/20/24 12:10/20/24 12:00 Narrative Exam General: Awake. HEENT: Normocephalic, atraumatic, mucous membranes moist. Heart: Regular rate and rhythm, no murmurs. Lungs: Clear to auscultation with no wheezing or crackles. Abdomen: Soft, nondistended, nontender, positive bowel sounds. ?No guarding or rebound tenderness. Neurologic: Alert and oriented x3, no gross neurological deficit, and patient able to move all 4 extremities. Extremities: No edema. Skin: No rash or ecchymoses. Objective Labs 10/21/24 04:52 10/21/24 04:52 Labs: Laboratory Results - last 24 hr 10/20/24 04:56 WBC 10.1 RBC 5.14 Hgb 14.9 Hct 43.6 MCV 85 MCH 29.0 MCHC 34.2 RDW Std Deviation 39.4 Plt Count 236 D Neut % (Auto) 53 Lymph % (Auto) 38 [place] % (Auto) 7 Eos % (Auto) 2 Baso % (Auto) 1 Neut # (Auto) 5.3 Lymph # (Auto) 3.8 [place] # (Auto) 0.7 Eos # (Auto) 0.2 Baso # (Auto) 0.1 Immature Gran # (Auto) 0.02 H Absolute Nucleated RBC 0.00 Immature Gran % 0 Nucleated RBC % 0 ESR 9 Sodium 142 Potassium 4.1 Chloride 106 Carbon Dioxide 28.3 Anion Gap 8 BUN < 5 L Creatinine 0.9 Estim Creat Clear Calc 130.8 eGFR > 60 BUN/Creatinine Ratio 6 L Glucose 97 Calculated Osmolality 280 Calcium 9.4 Corrected Calcium 9.4 Total Bilirubin 0.6 AST 765 H* ALT 265 H Alkaline Phosphatase 78 Lactate Dehydrogenase 1710 H Total Creatine Kinase 97271 H D Troponin I < 0.020 C-Reactive Prot, Quant < 0.5 Total Protein 6.1 Albumin 4.0 Globulin 2.1 L Albumin/Globulin Ratio 1.9 ABG Interpretation ABG results: 10/18/24 10/18/24 16:28 19:59 VBG pH 7.38 7.46 VBG pCO2 48 46 VBG pO2 23 26 VBG Base Excess 2 7 H Quality Measures Quality Measures none Assessment & Plan Assessment Current Active Medications: Generic Name Dose Route Start Last Admin Trade Name Freq PRN Reason Stop Dose Admin Lactated Ringer's 1,000 mls @ 300 mls/hr 10/19/24 11:20 10/20/24 14:55 Lactated Ringers IV 11/18/24 11:19 300 mls/hr .Q3H20M BORIS Administration Ibuprofen 600 mg 10/18/24 16:11 10/20/24 02:19 Ibuprofen Tab 600 Mg Tablet PO 11/17/24 16:10 600 mg Q6H PRN Administration Pain 1-3 and/or Fever >100.1 Losartan Potassium 25 mg 10/19/24 16:15 10/20/24 08:25 Losartan Potassium 25 Mg Tablet PO 11/18/24 16:14 25 mg QDAY BORIS Administration Ondansetron HCl 4 mg 10/18/24 16:11 Ondansetron Inj 2 Mg/Ml Inj 2 Ml IVP 11/17/24 16:10 Q6H PRN NAUSEA OR VOMITING Protocol Plan 29-year-old male with past medical history of marijuana use presenting to the ED on 10/18 with episode of muscle soreness will be admitted for the management of rhabdomyolysis we treated with IV fluids and close monitoring. #Rhabdomyolysis #Hematuria As noted above in HPI, patient had excessive workout which caused rhabdomyolysis, denies any trauma or crush injury or illicit drug use In the ED, patient found to have a CK greater than 39,000 with hematuria and proteinuria noted on UA On examination, no pertinent findings Ultrasound of kidneys shows bilateral cortical thinning without any hydronephrosis In the ED, patient given 2 L of LR along with sodium bicarb drip Plan: Will continue IV LR 300 cc an hour continuously Monitor with morning labs #Elevated liver enzymes, resolving During assessment, patient has elevated LFTs without elevation in T. bili On examination, patient denies having any significant abdominal tenderness Patient has not had a drink of alcohol for over a year and when he used to drink was a social drinker Likely secondary to rhabdomyolysis Plan: Follow-up on hepatitis panel - negative Monitor LFTs #Hypertension On presentation, patient is hypertensive systolic in the 150s and diastolic in the 90s Likely secondary to acutely ill status and rhabdomyolysis Patient does not take any antihypertensives at home Plan: Will continue monitoring blood pressure Started on losartan 25mg once daily, will increase as needed #Marijuana use disorder Patient smokes marijuana every other day Plan: Counseled on consideration to lessen the use Health Maintenance: Lines: PIV Diet: Regular Bowel: Not needed GI prophylaxis: Not needed DVT prophylaxis: Not needed patient ambulating without any issues Dispo: IV fluid resuscitation for rhabdomyolysis Code: Full Patient plan of care was discussed with the attending physician, Dr. Ron Jessica, PGY2 Attending Provider Attestation/Addendum I attest that I was physically present for the evaluation, physical examination, lab and imaging review of the patient with the residents. I discussed the case with the residents and agree with the findings and plans of care as documented above. Patient seen and evaluated at bedside this morning. Appears comfortable, denies any new complaints, denies any muscle pain. CK level continues to be more than 39,000, discussed with the lab regarding numerical value to monitor the trend of CK. We will continue with aggressive IV hydration, denies any red urine. Arpita Velasquez MD
[2024-10-21] MEDS: IBUPROFEN TAB 600 MG TABLET PO ×2 (01:58→20:32)
[2024-10-21] MEDS: RINGERS LACTATED 1000 ML 1,000 ML 300 ML IV ×7 (03:17→23:57)
[2024-10-21 04:00] VITALS: BP 136/87; PULSE 60; RESP 17; TEMP 36.6; O2SAT 97
[2024-10-21 05:21] LABS: Basophils # (Auto) 0.1 Thou/mm3 (0.0-0.2); Basophils % (Auto) 1 % (0-2.5); Eosinophils # (Auto) 0.1 Thou/mm3 (0.0-0.5); Eosinophils % (Auto) 1 % (0-10); Hematocrit 45.6 % (41.0-53.0); Hemoglobin 15.3 g/dL (13.5-16.0); Immature Granulocytes Auto 0.02 Thou/mm3 (0.00-0.00); Lymphocytes # (Auto) 3.4 Thou/mm3 (1.0-4.8); Lymphocytes % (Auto) 31 % (10-50); Mean Corpuscular HGB Conc 33.6 g/dl (31.0-37.0); Mean Corpuscular Hemoglobin 28.5 pg (25.0-35.0); Mean Corpuscular Volume 85 fL (80-100); Monocytes # (Auto) 0.7 Thou/mm3 (0.0-0.8); Monocytes % (Auto) 6 % (0-12); Neutrophils # (Auto) 6.7 Thou/mm3 (1.8-7.7); Neutrophils % (Auto) 61 % (37-80); Nucleated Red Blood Cell # 0.00 Thou/mm3 (0.00-0.00); Nucleated Red Blood Cell % 0 /100 WBC (0); Platelet Count 267 Thou/mm3 (140-440); RDW Standard Deviation 38.6 fL (35.1-43.9); Red Blood Count 5.36 Miln/mm3 (4.50-5.90); White Blood Count 10.9 Thou/mm3 (3.8-10.6)
[2024-10-21 06:07] LABS: Alanine Aminotransferase 281 U/L (10-49); Albumin, Serum 4.2 gm/dL (3.5-5.0); Albumin/Globulin Ratio 1.8 (1.2-2.2); Alkaline Phosphatase 80 U/L (46-116); Anion Gap 11 (7-16); Aspartate Amino Transferase 648 U/L (0-34); BUN/Creatinine Ratio 6 Ratio (12-20); Bilirubin,Total 0.7 mg/dL (0.3-1.2); Blood Urea Nitrogen 5 mg/dL (9-23); Calcium 9.5 mg/dL (8.3-10.6); Calcium (Corrected) 9.5 mg/dL (8.5-10.1); Carbon Dioxide 27.1 mMol/L (20.0-31.0); Chloride 103 mMol/L (98-107); Creatinine (Component) 0.8 mg/dL (0.6-1.3); Estimated Creatinine Clearance 147.6 mL/min (>60); Globulin 2.3 gm/dL (2.3-3.5); Glucose 90 mg/dL (74-106); Osmolality,Calculated 278 (275-295); Potassium 3.9 mMol/L (3.4-5.1); Sodium 141 mMol/L (136-145); Total Protein 6.5 gm/dL (5.7-8.2); eGFR > 60 See Note
[2024-10-21 06:50] LABS: Creatine Kinase 59235 U/L (34-171)
[2024-10-21 07:27] VITALS: BP 113/63; PULSE 59; RESP 17; TEMP 36.6; O2SAT 97
[2024-10-21 08:34] VITALS: BP 113/63; PULSE 65
[2024-10-21] MEDS: LOSARTAN POTASSIUM 25 MG TABLET PO (08:34)
[2024-10-21 09:27] LABS: Magnesium 1.7 mg/dL (1.6-2.6)
--- NOTE | 2024-10-21 09:36 | ESPR_ITS ---
<Statement entered by Avinash Jessica MD - 10/21/24 15:07> Patient is seen and examined at bedside. No acute overnight events. Denies any other complaints including muscle soreness or darkening of the urine. Vitals are stable. Physical examination remains unremarkable. Labs from this morning showed mildly elevated leukocyte count, 10.9 but also noted to have elevated count and other lineages, will follow-up with CBC in the a.m. Noted to have downtrending AST and total creatine kinase levels, [address]. Still continuing IV fluids at 300 mL/h. Encouraged patient to take plenty of fluids. Patient reported that he did only 50 crunches before coming to the hospital and denies any exposure to heat or any other history related to rhabdomyolysis. This severity of the enzyme elevation does not correlate with his physical activity. Patient might having some underlying genetic component. But patient denied any similar complaints in the family and denies any muscle weakness as of now. #Rhabdomyolysis, resolving #Transaminitis, downtrending #Hypertension #Marijuana use disorder I have personally seen and examined the patient, agree with residents assessment and plan Patient plan of care was discussed with the attending physician, Dr. Ron Jessica, PGY2 Documentation for date of: 10/21/24 Subjective Subjective Interval history: No acute events overnight. No new complaints. Reports that he no longer has dark urine. WBC mildly elevated, likely hemoconcentration as all cell lines appear to be elevated. Will continue to monitor CBC. Liver enzymes and creatinine kinase continue to be elevated however downtrending. Renal function intact. Has good oral fluid intake, will continue IV LR at 300 mL/h. Anticipate discharge home once CK <20,000. Exam Vital Signs Temp Pulse Resp BP Pulse Ox O2 Del Method 97.8 F 65 17 113/63 97 Room Air 10/21/24 07:27 10/21/24 08:34 10/21/24 07:27 10/21/24 08:34 10/21/24 07:27 10/21/24 07:27 Narrative Exam Physical Exam General: Awake and in no acute distress. Conversational and non-toxic appearing. HEENT: Normocephalic, atraumatic, mucous membranes moist. Heart: Regular rate and rhythm, normal S1 and S2, no murmurs. Lungs: Clear to auscultation with no wheezing or crackles. Abdomen: Soft, nondistended, nontender, positive bowel sounds. No guarding or rebound tenderness. Neurologic: Alert and oriented x3, no gross neurological deficit, and patient able to move all 4 extremities. Extremities: No edema. Skin: No rash or ecchymoses. Objective Labs 10/21/24 04:52 10/21/24 04:52 Labs: Laboratory Results - last 24 hr 10/20/24 10/21/24 10/21/24 04:56 04:12 04:52 WBC 10.9 H RBC 5.36 Hgb 15.3 Hct 45.6 MCV 85 MCH 28.5 MCHC 33.6 RDW Std Deviation 38.6 Plt Count 267 D Neut % (Auto) 61 Lymph % (Auto) 31 [place] % (Auto) 6 Eos % (Auto) 1 Baso % (Auto) 1 Neut # (Auto) 6.7 Lymph # (Auto) 3.4 [place] # (Auto) 0.7 Eos # (Auto) 0.1 Baso # (Auto) 0.1 Immature Gran # (Auto) 0.02 H Absolute Nucleated RBC 0.00 Immature Gran % 0 Nucleated RBC % 0 ESR 9 Sodium 141 Potassium 3.9 Chloride 103 Carbon Dioxide 27.1 Anion Gap 11 BUN 5 L Creatinine 0.8 Estim Creat Clear Calc 147.6 eGFR > 60 BUN/Creatinine Ratio 6 L Glucose 90 Calculated Osmolality 278 Calcium 9.5 Corrected Calcium 9.5 Magnesium 1.7 Total Bilirubin 0.7 AST 648 H* ALT 281 H Alkaline Phosphatase 80 Lactate Dehydrogenase 1710 H Total Creatine Kinase 06140 H D 15773 H D Troponin I < 0.020 C-Reactive Prot, Quant < 0.5 Total Protein 6.5 Albumin 4.2 Globulin 2.3 Albumin/Globulin Ratio 1.8 ABG Interpretation ABG results: 10/18/24 10/18/24 16:28 19:59 VBG pH 7.38 7.46 VBG pCO2 48 46 VBG pO2 23 26 VBG Base Excess 2 7 H Quality Measures Quality Measures none Assessment & Plan Assessment Current Active Medications: Generic Name Dose Route Start Last Admin Trade Name Freq PRN Reason Stop Dose Admin Lactated Ringer's 1,000 mls @ 300 mls/hr 10/19/24 11:20 10/21/24 06:09 Lactated Ringers IV 11/18/24 11:19 300 mls/hr .Q3H20M BORIS Administration Ibuprofen 600 mg 10/18/24 16:11 10/21/24 01:58 Ibuprofen Tab 600 Mg Tablet PO 11/17/24 16:10 600 mg Q6H PRN Administration Pain 1-3 and/or Fever >100.1 Losartan Potassium 25 mg 10/19/24 16:15 10/21/24 08:34 Losartan Potassium 25 Mg Tablet PO 11/18/24 16:14 25 mg QDAY BORIS Administration Ondansetron HCl 4 mg 10/18/24 16:11 Ondansetron Inj 2 Mg/Ml Inj 2 Ml IVP 11/17/24 16:10 Q6H PRN NAUSEA OR VOMITING Protocol Plan Patient is a 29-year-old male with past medical history of marijuana use who presented on 10/18 with episode of muscle soreness, admitted for the management of rhabdomyolysis with IV fluids. #Rhabdomyolysis,improving #Hematuria, resolved As noted above in HPI, patient had excessive workout which caused rhabdomyolysis, denies any trauma or crush injury or illicit drug use On admission, CK greater than 39,000 with hematuria and proteinuria noted on [place]. [place] [address] > [address]. Ultrasound of kidneys shows bilateral cortical thinning without any hydronephrosis. Creatinine WNL on admission, no CIRILO. In the ED, patient given 2 L of LR along with sodium bicarb drip Plan: - IV LR 300 cc/hour continuously - Encourage fluid rehydration - CTM CK - Consider outpatient work up for possible Ángel/metabolic myopathy #Elevated liver enzymes, resolving During assessment, patient has elevated LFTs without elevation in T. bili On examination, patient denies having any significant abdominal tenderness Patient has not had a drink of alcohol for over a year and when he used to drink was a social drinker Likely secondary to rhabdomyolysis Hepatitis panel negative. Plan: - CTM liver panel - Avoid hepatotoxic medications #Hypertension On presentation, patient is hypertensive systolic in the 150s and diastolic in the 90s Likely secondary to acutely ill status and rhabdomyolysis Patient does not take any antihypertensives at home Plan: - Losartan 25mg daily - CTM BP #Marijuana use disorder Patient smokes marijuana every other day Plan: - Counseled on consideration to lessen the use Health Maintenance: Diet: Regular Bowel: Not needed GI prophylaxis: Not needed DVT prophylaxis: Not needed patient ambulating without any issues Dispo: IV fluid resuscitation for rhabdomyolysis Code: Full Patient plan of care was discussed with the resident, Dr. Jessica, and attending physician, Dr. Velasquez. Joy Capone, PGY-1 Attending Provider Attestation/Addendum I attest that I was physically present for the evaluation, physical examination, lab and imaging review of the patient with the residents. I discussed the case with the residents and agree with the findings and plans of care as documented above. Patient seen and examined at bedside this morning. Continues to be comfortable, denies any new complaints. Vital signs are stable, lab results show mild elevation in WBC at 10.9. LFT slowly downtrending from 765-648 AST. Creatinine kinase level has down trended from 63,970 yesterday to 59,235 today. We will continue with aggressive IV hydration and monitor closely. Arpita Velasquez MD
--- NOTE | 2024-10-21 09:49 | PC.SS ---
Follow up note: On IV fluids. Pt will return home upon dc.
[2024-10-21 11:39] VITALS: BP 114/65; PULSE 66; RESP 17; TEMP 36.6; O2SAT 97
[2024-10-21 20:00] VITALS: BP 134/96; PULSE 79; RESP 17; TEMP 36.4; O2SAT 96
[2024-10-22] VITALS: BP 127/81; PULSE 61; RESP 16; TEMP 36.3; O2SAT 99
[2024-10-22] MEDS: RINGERS LACTATED 1000 ML 1,000 ML 300 ML IV ×3 (03:21→10:42)
[2024-10-22 04:00] VITALS: BP 110/58; PULSE 60; RESP 16; TEMP 36.4; O2SAT 97
[2024-10-22 05:37] LABS: Basophils # (Auto) 0.1 Thou/mm3 (0.0-0.2); Basophils % (Auto) 1 % (0-2.5); Eosinophils # (Auto) 0.2 Thou/mm3 (0.0-0.5); Eosinophils % (Auto) 2 % (0-10); Hematocrit 44.0 % (41.0-53.0); Hemoglobin 14.7 g/dL (13.5-16.0); Immature Granulocytes Auto 0.02 Thou/mm3 (0.00-0.00); Lymphocytes # (Auto) 3.4 Thou/mm3 (1.0-4.8); Lymphocytes % (Auto) 35 % (10-50); Mean Corpuscular HGB Conc 33.4 g/dl (31.0-37.0); Mean Corpuscular Hemoglobin 28.1 pg (25.0-35.0); Mean Corpuscular Volume 84 fL (80-100); Monocytes # (Auto) 0.7 Thou/mm3 (0.0-0.8); Monocytes % (Auto) 7 % (0-12); Neutrophils # (Auto) 5.5 Thou/mm3 (1.8-7.7); Neutrophils % (Auto) 56 % (37-80); Nucleated Red Blood Cell # 0.00 Thou/mm3 (0.00-0.00); Nucleated Red Blood Cell % 0 /100 WBC (0); Platelet Count 306 Thou/mm3 (140-440); RDW Standard Deviation 38.2 fL (35.1-43.9); Red Blood Count 5.24 Miln/mm3 (4.50-5.90); White Blood Count 9.9 Thou/mm3 (3.8-10.6)
[2024-10-22 06:11] LABS: Alanine Aminotransferase 221 U/L (10-49); Albumin, Serum 3.9 gm/dL (3.5-5.0); Albumin/Globulin Ratio 1.6 (1.2-2.2); Alkaline Phosphatase 73 U/L (46-116); Anion Gap 8 (7-16); Aspartate Amino Transferase 345 U/L (0-34); BUN/Creatinine Ratio 8 Ratio (12-20); Bilirubin,Total 0.5 mg/dL (0.3-1.2); Blood Urea Nitrogen 7 mg/dL (9-23); Calcium 9.4 mg/dL (8.3-10.6); Calcium (Corrected) 9.5 mg/dL (8.5-10.1); Carbon Dioxide 27.9 mMol/L (20.0-31.0); Chloride 105 mMol/L (98-107); Creatinine (Component) 0.9 mg/dL (0.6-1.3); Estimated Creatinine Clearance 131.2 mL/min (>60); Globulin 2.5 gm/dL (2.3-3.5); Glucose 92 mg/dL (74-106); Osmolality,Calculated 279 (275-295); Potassium 4.3 mMol/L (3.4-5.1); Sodium 141 mMol/L (136-145); Total Protein 6.4 gm/dL (5.7-8.2); eGFR > 60 See Note
[2024-10-22 06:28] LABS: Creatine Kinase 16000 U/L (34-171)
[2024-10-22] MEDS: IBUPROFEN TAB 600 MG TABLET PO (06:46)
[2024-10-22 07:34] VITALS: BP 150/95; PULSE 58; RESP 18; TEMP 36.4; O2SAT 97
--- NOTE | 2024-10-22 09:27 | ESDS_ITS ---
<Statement entered by Larry Cummins MD - 10/22/24 15:04> 29-year-old male with no significant past medical history presented to the ED with episode of muscle soreness, found to have rhabdomyolysis with severely elevated creatinine kinase. Patient stated that he did he strenuous exercise above his baseline and developed dark urine which prompted him to come to the ED. Patient was started on IV fluid resuscitation and did not have any signs of kidney dysfunction. Patient's liver enzymes were largely elevated with transaminitis noted secondary to rhabdomyolysis. Patient symptomatically improved and laboratory findings were trending back to normal. Patient will be discharged with the following strict instructions. I have personally seen and examined the patient. I agree with the resident's discharge summary as documented below. Larry Cummins DO PGY-2 Internal Medicine - [facility] Planned Discharge Date 10/22/24 DS: Providers Provider Date of admission: 10/18/24 16:11 Primary care physician: Physician No Primary/Family Admitting Provider: Arpita Velasquez MD Attending Provider on Admission: Ricardo Agosto MD Attending Provider on DC: Ricardo Agosto MD Discharging Provider: Joy Capone DO DS: Diagnosis Problem List Completed Was Problem List Reviewed/Reconciled?: Yes Hospital Course Hospital Course Hospital course: Summary: Patient is a 29-year-old male with past medical history of marijuana use who presented on 10/18 with episode of muscle soreness, admitted for acute transaminitis secondary to rhabdomyolysis, likely exercise-induced. Patient was successfully treated with IV fluids and oral rehydration. Patient did not present with CIRILO. Renal US showed mild bilateral renal parenchymal scar formation. US gallbladder was negative for cholecystitis. Of note patient also had elevated blood pressures, which was controlled on losartan 25 mg daily. Denies personal or family history of hypertension. Recommend follow-up patient workup for rhabdomyolysis and new onset hypertension. ED Course: In the ED, patient presented mildly hypertensive 159/99, regular heart rate, respiratory rate and afebrile satting 97 on room air. Pertinent lab findings included potassium 5.1, BUN 6, creatinine 0.9, eGFR greater than 60, lactic acid 1.0, AST 704, ALT 194, T. bili 0.6, total creatinine kinase greater than 39,000. Urinalysis shows proteinuria, hematuria 3+ with 5 RBC. Renal ultrasound shows bilateral renal parenchymal scar formation but no hydronephrosis and gallbladder ultrasounds was negative. Discharge Recommendations: -Follow-up with PCP within 1 week of discharge. If you do not have appointment, please follow-up with the [facility] with Dr. Jessica. Call [phone] to make an appointment. -Take Losartan 25mg as needed if BP>140/90 mm Hg and close monitoring o blood pressures -Recommended salt restriction -Follow up with PCP if blood pressures are persistently elevated -Return to ED if symptoms persist or return Hospital Diagnoses: #Transaminitis, improving #Rhabdomyolysis,improving #Hematuria, resolved #Hypertension #Marijuana use disorder Disposition: Safe discharge to home. Patient plan of care was discussed with the resident, Dr. Cummins, and attending physician, Dr. Agosto. Joy Capone, PGY-1 Time Spent with Patient Time attestation: Total time spent providing and/or coordinating discharge services: Time spent: Greater than 30 minutes Exam Vital Signs Temp Pulse Resp BP Pulse Ox O2 Del Method 97.5 F 58 L 18 150/95 H 97 Room Air 10/22/24 07:34 10/22/24 07:34 10/22/24 07:34 10/22/24 07:34 10/22/24 07:34 10/22/24 07:34 Narrative Exam Physical Exam General: Awake and in no acute distress. Conversational and non-toxic appearing. HEENT: Normocephalic, atraumatic, mucous membranes moist. Heart: Regular rate and rhythm, normal S1 and S2, no murmurs. Lungs: Clear to auscultation with no wheezing or crackles. Abdomen: Soft, nondistended, nontender, positive bowel sounds. No guarding or rebound tenderness. Neurologic: Alert and oriented x3, no gross neurological deficit, and patient able to move all 4 extremities. Extremities: No edema. Skin: No rash or ecchymoses. Discharge Plan Plan Patient Disposition: HOME (Self Care) Patient condition on transfer: Stable Care Plan Goals: -Follow-up with PCP within 1 week of discharge. If you do not have appointment, please follow-up with the [facility] with Dr. Jessica. Call [phone] to make an appointment. -Take Losartan 25mg as needed if BP>140/90 mm Hg and close monitoring o blood pressures -Recommended salt restriction -Follow up with PCP if blood pressures are persistently elevated -Return to ED if symptoms persist or return Prescriptions/Referrals Prescriptions/Med Rec: New losartan 25 mg tablet 25 mg PO QDAY PRN (Reason: For BP >140/90) Qty: 30 0RF Referrals: No Primary/Family,Physician [Primary Care Provider] Patient/Caregiver Discharge Instructions Education Materials: Rhabdomyolysis, ED Rhabdomyolysis Print Language: Yakut Stand Alone Forms: Cathy Award Info., Patient Portal Info Letter Discharge Order Discharge Orders: Discharge (Routine); Ordered 10/22/24 Ordered By: Avinash Jessica Quality Discharge Quality Measures VTE prophylaxis MD Attestestation MD Attestation I have examined the patient, reviewed labs and imaging findings, discussed the case with the resident(s), and reviewed entered orders. I agree with the plan of care as outlined in this note. Time Spent: [address] Surendra MD
[2024-10-22 11:49] VITALS: BP 131/82; PULSE 73; RESP 18; TEMP 36.4; O2SAT 97
== END 2024-10-22 13:03 | disposition home or self-care (01) | DRG 351 ==
LOC: SERX 16:22 → SERHOLD 10-21 05:25 → S3SX 10-21 05:25
PROVIDERS: Nurse Practitioner Family; Admitting Provider Student in an Organized Health Care Education/Training Program; Emergency Provider Family Medicine; Visit Provider Student in an Organized Health Care Education/Training Program
DX: M62.82 Rhabdomyolysis (principal); F12.90 Cannabis use, unspecified, uncomplicated; R31.9 Hematuria, unspecified; F12.10 Cannabis abuse, uncomplicated; R74.8 Abnormal levels of other serum enzymes; R74.01 Elevation of levels of liver transaminase levels; I10 Essential (primary) hypertension; Z79.899 Other long term (current) drug therapy
CPT/HCPCS: 36415; 76705; 76770; 80053; 80074; 80307; 80320; 81001; 82550; 82803; 83605; 83615; 83735; 84100; 84443; 84484; 84550; 85025; 85652; 86140; 99285; J7060; J7120; A9270; G0480

== ENCOUNTER 2024-11-12 16:02 | Emergency (ER) | payer MEDICAID, SELFPAY ==
[2024-11-12 16:20] VITALS: BP 156/95; PULSE 105; RESP 16; TEMP 36.8; O2SAT 96; BMI 33.1
[2024-11-12] MEDS: DIPHTH,PERTUSS(ACELL),TET VAC 0.5 ML SYR- ADULT IMi (16:36)
[2024-11-12] MEDS: LIDOCAINE HCL 1% 20 ML VIAL INFL (16:37)
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
== END 2024-11-12 18:02 | disposition home or self-care (01) ==
PROVIDERS: Emergency Provider Emergency Medicine; PCP Family Medicine
DX: S01.112A Laceration without foreign body of left eyelid and periocular area, initial encounter (principal); Y04.0XXA Assault by unarmed brawl or fight, initial encounter; Z23 Encounter for immunization
CPT/HCPCS: 12013; 90471; 90715; 99284; J3490